=== PATIENT | male | born 1970 | race Caucasian/White ===

== ENCOUNTER 2021-02-10 02:08 | Emergency (ER) | payer BC ==
[~2021-02-10] VITALS: Ht 175.3 cm; Wt 97.7 kg
[~2021-02-10 02:08] MED LIST: ASPIRIN81 MG PO; PLAVIX75 MG PO; TYLENOL #4 W/CO1 TAB PO; ULTRAM50 MG PO; XANAX0.5 MG PO; ZEBETA5 MG PO; ZESTRIL40 MG PO; ZOCOR40 MG PO; ZOLOFT100 MG PO
[2021-02-10 02:18] VITALS: Ht 175.3 cm; Wt 97.7 kg
[2021-02-10] MEDS ORDERED: PREDNISONE20 MG PO (02:27)
[2021-02-10] MEDS ORDERED: COLCRYS0.6 MG PO (02:27)
== END 2021-02-10 02:53 | disposition home or self-care (01) ==
LOC: D.ER 02:08
DX: M79.672 Pain in left foot (principal); M10.9 Gout, unspecified; I10 Essential (primary) hypertension; M54.9 Dorsalgia, unspecified